=== PATIENT | male | born 1950 | race Caucasian/White ===

== ENCOUNTER 2017-04-27 07:27 | Day surgery (SDC) | payer OTHER ==
[~2017-04-27] VITALS: Ht 165.1 cm; Wt 74.7 kg
[~2017-04-27 07:27] MED LIST: CALC-61; CHOL20002 PO; MELO-210 PO; SIMV20TA2 PO; [UNRECOGNIZED DRUG - CODE] PO; [UNRECOGNIZED DRUG - CODE] PO
[2017-04-27 08:09] VITALS: Ht 165.1 cm; Wt 74.7 kg
[2017-04-27 08:28] VITALS: BP 153/95; PULSE 94; RESP 16
--- NOTE | 2017-04-27 09:32 | OPPN ---
Date/Time of Note Date/Time of Note DATE: 04/27/17 TIME: 09:31 Operative Report Preoperative Diagnosis Abdominal pain Chronic heartburn Screening Postoperative Diagnosis Hiatal hernia and gastroesophageal reflux disease Gastritis with erosions 2 small colon polyps were removed using biopsy forceps Internal hemorrhoids Operation/Procedure Performed Esophagogastroduodenoscopy and biopsy Colonoscopy and biopsy Surgeon see signature line teachers assistant None Anesthesia: moderate sedation Estimated blood loss: none Transfusion Required none Specimen Gastric mucosal biopsy Colon polyps Grafts/Implants none Complications none LIBBY JUAREZ MD Apr 27, 2017 09:32
[2017-04-27] MEDS ORDERED: FENTAnyl 50 MCG/ML VIAL ONE (09:37)
[2017-04-27] MEDS ORDERED: MIDAZOLAM 1 MG/ML 2 ML INJ ONE ×2 (09:37)
--- NOTE | 2017-04-27 13:32 | GILP ---
DATE OF PROCEDURE: NAME OF PROCEDURES: 1. Esophagogastroduodenoscopy and biopsy. 2. Colonoscopy and biopsy. SURGEON: Princess Santamaria MD PREOPERATIVE DIAGNOSES: 1. Abdominal pain. 2. Chronic heartburn. 3. Screening colonoscopy. POSTOPERATIVE DIAGNOSES: 1. Hiatal hernia. 2. Gastroesophageal reflux disease. 3. Gastritis with erosions. 4. Gastric mucosal biopsies were taken for Helicobacter pylori test. 5. Colonoscopy all the way to the cecum. 6. Two small colon polyps were removed using biopsy forceps. 7. Internal hemorrhoids. INDICATION FOR THE PROCEDURE: Mr. Cari Harp is a 66-year-old male patient who had upper abdo hemal pain and chronic heartburn, not responding to therapy. He also needed screening colonoscopy. The procedures and possible complications are well explained to the patient. The patient understood and consented to the procedure. DESCRIPTION OF PROCEDURE: Under the influence of fentanyl and Versed, the gastroscope was carefully introduced into the esophagus and under direct vision it was advanced to the stomach and through th e pylorus into the duodenal bulb and descending duodenum. FINDINGS: ESOPHAGUS: The patient had hiatal hernia and gastroesophageal reflux disease. STOMACH: He had gastritis with erosions. Gastric mucosal biopsies were taken for H. pylori test. DUODENUM: Normal. The colonoscope was carefully introduced in the rectum and under direct vision it was advanced all t he way to the cecum. FINDINGS: The patient had 2 small colon polyps and they were removed using biopsy forceps. He was noted to have internal hemorrhoids. He tolerated the procedures very well and there was no complication from the procedures. At the end of the procedures, he was awake with stable vital signs and he was discharged home to the care of h is family. IMPRESSION: Please see postoperative diagnoses. PLAN: 1. Omeprazole 40 mg p.o. q.a.m. 2. Await histopathology reports. 3. Next screening colonoscopy in 10 years. Dictated By: PRINCESS CRUZ/ROSHAN Conf#: [id number] DID#: [id number]
== END 2017-04-27 11:17 | disposition home or self-care (01) ==
LOC: GIL 07:27
PROVIDERS: ATTEND Internal Medicine Gastroenterology
DX: Z12.11 Encounter for screening for malignant neoplasm of colon (principal); K63.5 Polyp of colon; K44.9 Diaphragmatic hernia without obstruction or gangrene; B96.81 Helicobacter pylori [H. pylori] as the cause of diseases classified elsewhere; K21.9 Gastro-esophageal reflux disease without esophagitis; K29.70 Gastritis, unspecified, without bleeding; K64.8 Other hemorrhoids; I10 Essential (primary) hypertension
CPT/HCPCS: 43239; 45380; 87081; 88305; J2250; J3010; Z7610